=== PATIENT | female | born 1975 | race African-American/Black ===

== ENCOUNTER 2017-05-01 20:03 | Emergency (ER) | payer OTHER ==
[~2017-05-01] VITALS: Ht 149.9 cm; Wt 78.0 kg
[2017-05-01] MEDS ORDERED: ORPHENADRINE100 MG PO (22:00)
[2017-05-01] MEDS ORDERED: PERCOCET 5/325M1 TAB PO (22:00)
[2017-05-01 22:01] VITALS: BP 142/88
== END 2017-05-01 22:01 | disposition home or self-care (01) | DRG 552 ==
LOC: ED 20:03
DX: M43.6 Torticollis (principal)